=== PATIENT | male | born 1970 | race African-American/Black ===

== ENCOUNTER 2018-10-17 04:37 | Emergency (ER) | payer BC, OTHER ==
[2018-10-17 04:47] VITALS: BP 165/100
[2018-10-17] MEDS ORDERED: DEXAMETHASONE SOD PHOS INJ 10 MG/1 ML VIAL IM ONE (06:09)
[2018-10-17] MEDS ORDERED: NYSTATIN/DEXAMETH/DIPHEN SUSP 120 ML PO ONE ×2 (06:09→06:18)
[2018-10-17] MEDS ORDERED: ACETAMINOPHEN 325 MG TABLET PO ONE (06:10)
--- NOTE | 2018-10-17 06:32 | ER Document Report ---
HPI - HPI Patient complains to provider of: sore throat Time Seen by Provider: 10/17/18 05:41 Pain Level: 4 Context: Very pleasant 48-year-old male presents to the emergency department with chief complaint of sore throat x2 days. He said he has a couple of sick contacts at work and he initially had a scratchy throat and was able to speak but now he has significant dysphagia and is unable to talk as his voice is very hoarse. He said he had a low-grade fever this morning, denies any significant neck stiffness, is able to control his secretions, is able to swallow, denies earache, denies vision changes or headache, denies acute shortness of breath or chest pain, denies nausea/vomiting/diarrhea/constipation, denies abdominal pain, denies any other symptoms. - EENT EENT: REPORTS: Sore Throat Past Medical History - Social History Smoking Status: Unknown if Ever Smoked Family History: None Patient has suicidal ideation: No Patient has homicidal ideation: No Renal/ Medical History: Denies: Hx Peritoneal Dialysis Vertical Provider Document - CONSTITUTIONAL Notes: PHYSICAL EXAMINATION: Reviewed vital signs and charting by RN GENERAL: Alert, interacts well. No acute distress. HEAD: Normocephalic, atraumatic. EYES: Pupils equal and round. Extraocular movements intact. ENT: Oral mucosa moist, tongue midline. 2+ bilateral tonsillar hypertrophy with bilateral exudate noted, there is erythema over the tonsils and the soft palate but no soft palate petechiae. NECK: Full range of motion. Trachea midline. Anterior cervical lymphadenopathy LUNGS: Clear to auscultation bilaterally, no wheezes, rales, or rhonchi. No respiratory distress. HEART: Regular rate and rhythm. No murmur ABDOMEN: soft, non-tender. No distention. Bowel sounds present EXTREMITIES: Moves all 4 extremities spontaneously. No edema, No cyanosis. PSYCH: Normal affect, normal mood. SKIN: Warm, dry, normal turgor. No rashes or lesions noted. - INFECTION CONTROL TRAVEL OUTSIDE OF THE [place] IN LAST 30 DAYS: No Course - Re-evaluation Re-evalutation: 10/17/18 06:40 Presentation of several days of sore throat in an otherwise well-appearing patient. Rapid strep is negative. History and exam are not consistent with a retropharyngeal abscess or peritonsillar abscess. Airway is patent. No difficulty handling oral secretions. Vitals within normal limits. Patient was treated with a dose of dexamethasone and advised on symptomatic care. Suspect likely viral pharyngitis. At this time will discharge with return precautions and follow-up recommendations. Verbal discharge instructions given a the bedside and opportunity for questions given. Medication warnings reviewed. Patient is in agreement with this plan and has verbalized understanding of return precautions and the need for primary care follow-up in the next 24-72 hours. - Vital Signs Vital signs: Temp Pulse Resp BP Pulse Ox 98.4 F 70 16 165/100 H 95 10/17/18 04:43 10/17/18 04:43 10/17/18 04:43 10/17/18 04:43 10/17/18 04:43 Discharge - Discharge Clinical Impression: Viral pharyngitis Condition: Good Disposition: HOME, SELF-CARE Additional Instructions: Your strep test is negative. Your symptoms are likely due to an viral infection and will resolve in the next 1-2 weeks. You have also been given a dose of steroids to help with your throat discomfort. Please continue to take naproxen 500 mg every 12 hours or Tylenol 1000 mg every 6 hours as needed for throat discomfort. You can also gargle with salt water. Continue to drink plenty of fluids. Follow-up with your primary care doctor in the next several days. Return if you become unable to swallow, have difficulty breathing, pass out, have persistent vomiting that prevents you from being able to tolerate fluids, or have any other symptoms that are concerning to you. Forms: Return to Work Referrals: [facility] [Primary Care Provider] - Follow up as needed
== END 2018-10-17 06:27 | disposition home or self-care (01) ==
LOC: ER 04:37
DX: J02.9 Acute pharyngitis, unspecified (principal); R13.10 Dysphagia, unspecified
CPT/HCPCS: 99283; 96374; 87070; 87880; J3490; J1100

== ENCOUNTER 2019-04-27 04:00 | Emergency (ER) | payer OTHER, BC ==
[2019-04-27] MEDS ORDERED: ACETAMINOPHEN 325 MG TABLET PO ONE (06:47)
--- NOTE | 2019-04-27 07:56 | ER Document Report ---
ED GI/ - General Chief Complaint: Rectal Pain Stated Complaint: RECTAL PAIN Time Seen by Provider: 04/27/19 07:21 Primary Care Provider: [facility] [Primary Care Provider] - Follow up as needed Mode of Arrival: Ambulatory Information source: Patient Notes: 49-year-old man presents to the emergency department with a complaint of pain in the rectal region. He states that symptoms have been ongoing for the past few days. He is tried using witch ramírez, Preparation H and has gotten some temporary relief from those medications. He states that the pain is increased and is very uncomfortable to have a bowel movement. He denies bleeding or drainage. TRAVEL OUTSIDE OF THE [place] IN LAST 30 DAYS: No - Related Data Allergies/Adverse Reactions: ibuprofen [From Motrin] Allergy (Mild, Verified 06/20/12 00:34) Nausea Past Medical History - Social History Smoking Status: Current Every Day Smoker Frequency of alcohol use: Occasional Drug Abuse: None Family History: None Patient has suicidal ideation: No Patient has homicidal ideation: No Renal/ Medical History: Denies: Hx Peritoneal Dialysis Review of Systems - Review of Systems Notes: Constitutional: Negative for fever. HENT: Negative for sore throat. Eyes: Negative for visual changes. Cardiovascular: Negative for chest pain. Respiratory: Negative for shortness of breath. Gastrointestinal: + Rectal pain, negative for abdominal pain, vomiting or diarrhea. Genitourinary: Negative for dysuria. Musculoskeletal: Negative for back pain. Skin: Negative for rash. Neurological: Negative for headaches, weakness or numbness. 10 point ROS negative except as marked above and in HPI. Physical Exam - Vital signs Vitals: Temp Pulse Resp BP Pulse Ox 98.8 F 88 20 165/98 H 98 04/27/19 04:06 04/27/19 04:06 04/27/19 04:06 04/27/19 04:06 04/27/19 04:06 - Notes Notes: PHYSICAL EXAMINATION: Physical Exam: General: Well-nourished well-developed 49-year-old man in no acute distress HEENT: NC/AT, pupils equal round and reactive to light, MM moist,nares clear, Neck: supple, no adenopathy, no masses. Lungs: clear, no wheezing, no rales no rhonchi CVS: Regular rate and rhythm no murmur gallop or rub Abdomen: Soft, active nontender, no masses, rectal exam: Tender internal hemorrhoid at 9:00, no bleeding. Ext: No edema clubbing or cyanosis. Neuro: Alert and responsive, moving all 4 extremities on command, cranial nerves intact. Skin: Intact no open lesions, no rash PSYCH: Normal mood, normal affect. Course - Re-evaluation Re-evalutation: 04/27/19 07:52 I have explained to the patient that medical treatment of the hemorrhoids require attention to use the medications, stool softener, and Tylenol for pain. Warm water soaks with Epson salt may also help. Patient acknowledges an understanding of this plan and is in agreement with that approach. - Vital Signs Vital signs: Temp Pulse Resp BP Pulse Ox 98.8 F 88 20 165/98 H 98 04/27/19 04:06 04/27/19 04:06 04/27/19 04:06 04/27/19 04:06 04/27/19 04:06 Discharge - Discharge Clinical Impression: Rectal pain, Hemorrhoids, internal Condition: Good Disposition: HOME, SELF-CARE Instructions: Hemorrhoids ([facility]) Additional Instructions: You were diagnosed with internal hemorrhoid and rectal pain today in the emergency department. Use the medication as prescribed Anusol HC, Colace. Tylenol may help the pain also. Using a warm water soak with Epson salt may help reduce the pain and discomfort. Please follow-up with your doctor as needed. If you develop new problems or difficulties you may return to the emergency department. Forms: Return to Work Referrals: [facility] [Primary Care Provider] - Follow up as needed
[2019-04-27 08:19] VITALS: BP 139/96
== END 2019-04-27 08:22 | disposition home or self-care (01) ==
LOC: ER 04:00
DX: K64.8 Other hemorrhoids (principal); K62.89 Other specified diseases of anus and rectum; F17.200 Nicotine dependence, unspecified, uncomplicated; Z88.6 Allergy status to analgesic agent
CPT/HCPCS: 99283

== ENCOUNTER 2019-04-28 22:14 | Emergency (ER) | payer BC, OTHER | END 2019-04-28 22:37 | disposition left against medical advice (07) | LOC: ER 22:14 | DX: Z53.21 Procedure and treatment not carried out due to patient leaving prior to being seen by health care provider (principal) ==

== ENCOUNTER 2019-05-01 11:43 | Emergency (ER) | payer OTHER, BC ==
--- NOTE | 2019-05-01 12:50 | ER Document Report ---
ED Medical Screen (RME) - General Chief Complaint: Rectal Bleeding Stated Complaint: RECTAL BLEEDING Time Seen by Provider: 05/01/19 12:50 Primary Care Provider: PRAESH CHANDLER [Primary Care Provider] - Follow up as needed Mode of Arrival: Ambulatory Information source: Patient Notes: 49-year-old male presented to ED for complaint of a rectal hemorrhoid that is bleeding. He states he did have an internal hemorrhoid but now it is an external hemorrhoid. According to the pictures he has there is a small amount of dark blood on the paper and he states there was also blood in the toilet. He will need to get examined and treated for this bleeding hemorrhoid. I have greeted and performed a rapid initial assessment of this patient. A comprehensive ED assessment and evaluation of the patient, analysis of test results and completion of medical decision making process will be conducted by an additional ED providers. TRAVEL OUTSIDE OF THE [place] IN LAST 30 DAYS: No - Related Data Allergies/Adverse Reactions: ibuprofen [From Motrin] Allergy (Mild, Verified 06/20/12 00:34) Nausea Past Medical History Renal/ Medical History: Denies: Hx Peritoneal Dialysis Physical Exam - Vital signs Vitals: Temp Pulse Resp BP Pulse Ox 98.5 F 108 H 22 H 157/93 H 96 05/01/19 11:48 05/01/19 11:48 05/01/19 11:48 05/01/19 11:48 05/01/19 11:48 Course - Vital Signs Vital signs: Temp Pulse Resp BP Pulse Ox 98.5 F 108 H 22 H 157/93 H 96 05/01/19 11:48 05/01/19 11:48 05/01/19 11:48 05/01/19 11:48 05/01/19 11:48 Doctor's Discharge - Discharge Referrals: [facility] [Primary Care Provider] - Follow up as needed
[2019-05-01 13:49] LABS: ABSOLUTE BASOPHILS # (AUTO) 0.2 10^3/uL (0.0-0.2); ABSOLUTE EOSINOPHILS # (AUTO) 0.1 10^3/uL (0.0-0.6); ABSOLUTE LYMPHOCYTES (AUTO) 3.7 10^3/uL (0.5-4.7); ABSOLUTE MONOCYTES (AUTO) 1.2 10^3/uL (0.1-1.4); ABSOLUTE NEUT (AUTO) 13.5 10^3/uL (1.7-8.2); BASOPHILS % (AUTO) 0.8 % (0-2); EOSINOPHILS % (AUTO) 0.3 % (0-6); HEMATOCRIT 45.2 % (37.9-51.0); HEMOGLOBIN 15.4 g/dL (13.5-17.0); MEAN CORPUSCULAR HEMOGLOBIN 29.8 pg (27.0-33.4); MEAN CORPUSCULAR HGB CONC 34.1 g/dL (32.0-36.0); MEAN CORPUSCULAR VOLUME 87 fl (80-97); MONOCYTES % (AUTO) 6.4 % (3-13); PLATELET COUNT 243 10^3/uL (150-450); RED BLOOD COUNT 5.18 10^6/uL (4.35-5.55); RED CELL DISTRIBUTION WIDTH 13.6 % (11.5-14.0); SEGMENTED NEUTROPHILS % (AUTO) 72.5 % (42-78); TOTAL CELLS COUNTED % (AUTO) 100 %; WHITE BLOOD COUNT 18.6 10^3/uL (4.0-10.5)
[2019-05-01] MEDS ORDERED: ONDANSETRON HCL INJ/PF 4 MG/2 ML SDV IV ONE (14:02)
[2019-05-01] MEDS ORDERED: MORPHINE SULFATE 10 MG/ML INJ IV ONE (14:02)
[2019-05-01] MEDS ORDERED: NORMAL SALINE 1000 ML 1,000 ML IV ONE (14:03)
[2019-05-01 14:06] LABS: ALBUMIN 4.9 g/dL (3.5-5.0); ALKALINE PHOSPHATASE 111 U/L (38-126); ANION GAP 12 (5-19); ASPARTATE AMINO TRANSFERASE 27 U/L (17-59); BILIRUBIN,DIRECT 0.4 mg/dL (0.0-0.4); BLOOD UREA NITROGEN 23 mg/dL (7-20); CALCIUM 9.9 mg/dL (8.4-10.2); CARBON DIOXIDE 27 mmol/L (22-30); CHLORIDE 99 mmol/L (98-107); GLUCOSE 87 mg/dL (75-110); POTASSIUM 4.8 mmol/L (3.6-5.0); TOTAL PROTEIN 8.3 g/dL (6.3-8.2)
--- NOTE | 2019-05-01 14:46 | ER Document Report ---
ED General - General Chief Complaint: Hemorrhoids Stated Complaint: RECTAL BLEEDING Time Seen by Provider: 05/01/19 12:50 Primary Care Provider: [facility] [Primary Care Provider] - Follow up as needed Mode of Arrival: Ambulatory Information source: Patient TRAVEL OUTSIDE OF THE [place] IN LAST 30 DAYS: No - HPI Notes: Patient presents with rectal pain. He states he has a history of hemorrhoids. He states this pain though has been severe. He states that it started several days ago. It is worse when he tries to sit down and better when he does not put pressure on the area. It is been severe. It radiates throughout his rectum. It is a sharp pain. He states he also noticed a large amount of blood in the toilet water today on several occasions. He has had no fevers. No significant abdominal pain. - Related Data Allergies/Adverse Reactions: ibuprofen [From Motrin] Allergy (Mild, Verified 05/01/19 12:50) Nausea Home Medications: lisinopril, naprosin Past Medical History - General Information source: Patient - Social History Smoking Status: Former Smoker Chew tobacco use (# tins/day): No Frequency of alcohol use: None Drug Abuse: None Family History: None Patient has suicidal ideation: No Patient has homicidal ideation: No - Past Medical History Cardiac Medical History: Reports: Hx Hypertension Renal/ Medical History: Denies: Hx Peritoneal Dialysis Review of Systems - Review of Systems Constitutional: denies: Chills, Fever Cardiovascular: denies: Chest pain, Palpitations Respiratory: denies: Cough, Short of breath -: Yes All other systems reviewed and negative Physical Exam - Vital signs Vitals: Temp Pulse Resp BP Pulse Ox 98.5 F 108 H 22 H 157/93 H 96 05/01/19 11:48 05/01/19 11:48 05/01/19 11:48 05/01/19 11:48 05/01/19 11:48 Interpretation: Tachycardic - General General appearance: Appears well, Alert - HEENT Head: Normocephalic, Atraumatic Eyes: Normal Pupils: PERRL - Respiratory Respiratory status: No respiratory distress Chest status: Nontender Breath sounds: Normal Chest palpation: Normal - Cardiovascular Rhythm: Regular Heart sounds: Normal auscultation Murmur: No - Abdominal Inspection: Normal Distension: No distension Bowel sounds: Normal Tenderness: Nontender Organomegaly: No organomegaly - Rectal Tenderness: Yes Notes: Patient has a rectal abscess visible at approximately 6:00. It has ruptured and is leaking pustular fluid. It is soft but tender to palpation at this time. The extent of this abscess is not able to be ascertained on manual exam. Therefore I am currently awaiting CT scan for this evaluation. It has the appearance of a possible abscessed hemorrhoid. - Back Back: Normal, Nontender - Extremities General upper extremity: Normal inspection, Nontender, Normal color, Normal ROM, Normal temperature General lower extremity: Normal inspection, Nontender, Normal color, Normal ROM, Normal temperature, Normal weight bearing. No: Josué's sign - Neurological Neuro grossly intact: Yes Cognition: Normal Orientation: AAOx4 Corina Coma Scale Eye Opening: Spontaneous Effie Coma Scale Verbal: Oriented Effie Coma Scale Motor: Obeys Commands Corina Coma Scale Total: 15 Speech: Normal Motor strength normal: LUE, RUE, LLE, RLE Sensory: Normal - Psychological Associated symptoms: Normal affect, Normal mood - Skin Skin Temperature: Warm Skin Moisture: Dry Skin Color: Normal Course - Re-evaluation Re-evalutation: 05/01/19 16:35 Patient presents with severe rectal pain. He has an obvious abscess approximate 6:00. It appears to be an abscessed hemorrhoid. It is draining copious amounts of foul-smelling yellow-green pus. CT scan shows no extension of this abscess beyond the hemorrhoid. Patient does have a white count but he has no fever. He is not hypotensive. He does not appear toxic. At this time because the abscess has drained so much I do not feel that packing would be necessary. I am going to have the patient rechecked in 2 days. I will discharge the patient on antibiotics and pain medication. He has been instructed to return sooner if he has any concerns. Vitals were rechecked patient's pulse is now 82. Blood pressure is 130 systolic. 05/01/19 16:44 - Vital Signs Vital signs: Temp Pulse Resp BP Pulse Ox 98.5 F 108 H 22 H 157/93 H 96 05/01/19 14:30 05/01/19 14:30 05/01/19 14:30 05/01/19 14:30 05/01/19 14:30 - Laboratory Result Diagrams: 05/01/19 13:28 05/01/19 13:28 Laboratory results interpreted by me: 05/01/19 05/01/19 13:28 13:28 WBC 18.6 H Absolute Neuts (auto) 13.5 H BUN 23 H Total Protein 8.3 H - Diagnostic Test Radiology reviewed: Image reviewed, Reports reviewed Discharge - Discharge Clinical Impression: Hemorrhoids, external, with complication, Abscess Condition: Stable Disposition: HOME, SELF-CARE Instructions: Abscess ([facility]), Oral Narcotic Medication ([facility]) Additional Instructions: Please return to the emergency department in 2 days for a recheck of your abscess. Please return sooner if any concerns. Prescriptions: Amoxicillin/Potassium Clav [Amox-Clav 875-125 mg Tablet] 1 each PO BID 7 Days #14 tablet Hydrocodone/Acetaminophen [[place] 5-325 mg Tablet] 1 tab PO Q6 PRN 3 Days #12 tablet PRN Reason: Forms: Return to Work Referrals: [facility] [Primary Care [facility]] - Follow up in 3-5 days
--- NOTE | 2019-05-01 16:20 | RADIOLOGY REPORT (SQ) ---
EXAM DESCRIPTION: CT PELVIS WITH COMPLETED DATE/TIME: 05/01/2019 2:50 pm REASON FOR STUDY: evaluate rectal abscess COMPARISON: None. TECHNIQUE: CT scan of the pelvis performed without intravenous or oral contrast. Images reviewed wi th soft tissue and bone windows. Reconstructed coronal and sagittal MPR images reviewed. All images stored on PACS. All CT scanners at this facility use dose modulation, iterative reconstruction, and/or weight based d osing when appropriate to reduce radiation dose to as low as reasonably achievable (ALARA). [facility]: Dose Right [facility]: CareDose [facility]: Dose Right [facility]: Teradose 4D [facility]: Smart Kazaana RADIATION DOSE: CT Rad equipment meets quality standard of care and radiation dose reduction techniq ues were employed. CTDIvol: 14.8 - 19.3 mGy. DLP: 1273 mGy-cm. mGy. LIMITATIONS: None. FINDINGS: PELVIC BONES: No acute fracture. No worrisome bone lesions. VISUALIZED SPINE: No acute findings. HIP(S): No acute fracture or dislocation. No worrisome bone lesions. PELVIC SOFT TISSUES: Urinary bladder is normal. No abnormal bowel is seen. The appendix is not iden tified. No perirectal abscess is appreciated. EXTRAPELVIC SOFT TISSUES: No significant findings. OTHER: No other significant finding. IMPRESSION: NO ACUTE OR SIGNIFICANT FINDINGS. TECHNICAL DOCUMENTATION: JOB ID: [id number] Quality ID # [id number]: Final reports with documentation of one or more dose reduction techniques (e.g., Au tomated exposure control, adjustment of the mA and/or kV according to patient size, use of iterative reconstruction technique) 2010 [employer]- All Rights Reserved Reading location - IP/workstation name: [email or web address]
[2019-05-01 16:40] VITALS: BP 136/69
== END 2019-05-01 16:53 | disposition home or self-care (01) ==
LOC: ER 11:43
DX: K61.1 Rectal abscess (principal); K64.4 Residual hemorrhoidal skin tags; I10 Essential (primary) hypertension; Z79.899 Other long term (current) drug therapy; Z79.1 Long term (current) use of non-steroidal anti-inflammatories (NSAID)
CPT/HCPCS: 99283; 96361; 96374; 96375; 36415; 85025; 80053; 72193; J2270; J2405; J7030